=== PATIENT | female | born 1945 | race Caucasian/White ===

== ENCOUNTER → 2021-03-09 14:50 | Outpatient (CLI) | payer OTHER, SELFPAY | PROVIDERS: PCP Family Medicine; Referring Provider Family Medicine; Visit Provider Family Medicine | DX: Z20.9 Contact with and (suspected) exposure to unspecified communicable disease (principal) | CPT/HCPCS: 36415; 86769 ==

== ENCOUNTER → 2021-05-10 08:52 | Outpatient (CLI) | payer OTHER, SELFPAY ==
--- NOTE | 2021-05-10 | DI.MG.S_ITS ---
UNILATERAL RIGHT DIGITAL DIAGNOSTIC MAMMOGRAM 3D/2D: 05/10/2021 CLINICAL: Short term follow up. Comparison is made to exams dated: 10/26/2020 mammogram, 10/20/2020 mammogram, and 09/17/2019 mammogram - outside location. The tissue of right breast is heterogeneously dense. This may lower the sensitivity of mammography. There are faint, diffuse fine punctate calcifications in the right breast at 8 o'clock posterior depth. These are less prominent. The focal cluster previously described is not seen. No other significant masses or calcifications are seen in the breast. IMPRESSION: BENIGN Calcifications in the right breast appear benign. There is no mammographic evidence of malignancy. Return to annual mammogram screening schedule is recommended. Findings and recommendations were conveyed to the patient at time of exam. This exam was interpreted at Station ID: [id number]. NOTE: For mammograms, a report in lay terms will be sent to the patient. Approximately 15% of breast malignancies will not be visualized mammographically. In the management of a palpable breast mass, a negative mammogram must not discourage biopsy of a clinically suspicious lesion. Electronically Signed By: Lakisha garcia/:05/10/2021 09:48:58 letter sent: Normal Exam ACR BI-RADS Category 2: Benign Finding(s) 3342F
== END ==
PROVIDERS: PCP Family Medicine; Referring Provider Family Medicine; Visit Provider Family Medicine
DX: R92.8 Other abnormal and inconclusive findings on diagnostic imaging of breast (principal); R92.1 Mammographic calcification found on diagnostic imaging of breast
CPT/HCPCS: 77065; G0279

== ENCOUNTER → 2021-07-14 15:39 | Outpatient (CLI) | payer OTHER, SELFPAY ==
[2021-07-14 17:42] LABS: Add Manual Diff / Slide Review NO; Basophils Absolute Auto 0 /uL (0-100); Basophils Percent Auto 0.3 % (0-2); Eosinophils Absolute Auto 100 /uL (0-450); Eosinophils Percent Auto 0.9 % (2-4); Hematocrit 39.6 % (36-46); Hemoglobin 13.2 g/dL (12.0-16.0); Lymphocytes Absolute Auto 2200 /uL (1100-4500); Lymphocytes Percent Auto 26.5 % (25-40); Mean Corpuscular HGB Conc 33.3 % (30-36); Mean Corpuscular Hemoglobin 29.9 PG (26-34); Mean Corpuscular Volume 89.8 fL (80-100); Monocytes Absolute Auto 700 /uL (0-900); Monocytes Percent Auto 8.9 % (3-14); Neutrophils Absolute Auto 5200 /uL (1500-7000); Neutrophils Percent Auto 63.4 % (50-75); Platelet Count 305 X10^3/uL (150-400); Red Blood Cell Count 4.41 X10^6/uL (4.0-5.2); Red Cell Distribution Width 13.2 % (11.6-14.8); White Blood Cell Count 8.1 X10^3/uL (4.5-11.0)
[2021-07-14 17:55] LABS: Iron 83 ug/dL (37-170)
[2021-07-14 17:57] LABS: Alanine Aminotransferase 22 IU/L (<35); Albumin 4.2 g/dL (3.5-5.0); Albumin Globulin Ratio 1.5 (1.0-2.8); Alkaline Phosphatase 58 U/L (38-126); Aspartate Aminotransferase 31 IU/L (14-36); BUN Creatinine Ratio 20.7 (6-22); Bilirubin Total 0.7 mg/dL (0.2-1.3); Blood Urea Nitrogen 18 mg/dL (7-17); Calcium 9.4 mg/dL (8.4-10.2); Carbon Dioxide 30 mmol/L (22-32); Chloride 103 mmol/L (98-107); Estimated Glomerular Filt Rate > 60.0 mL/min (>60); Globulin 2.8 g/dL (1.7-4.1); Glucose 101 mg/dL (80-110); HEMOLYSIS < 15 (0-50); Potassium 4.4 mmol/L (3.4-5.1); Sodium 139 mmol/L (137-145)
== END ==
PROVIDERS: PCP Family Medicine; Referring Provider Family Medicine; Visit Provider Family Medicine
DX: K25.4 Chronic or unspecified gastric ulcer with hemorrhage (principal)
CPT/HCPCS: 36415; 80053; 83540; 85025

== ENCOUNTER → 2022-10-16 15:53 | Outpatient (CLI) | payer OTHER, SELFPAY ==
[2022-10-16 17:10] LABS: Add Manual Diff / Slide Review NO; Basophils Absolute Auto 0 /uL (0-100); Basophils Percent Auto 0.4 % (0-2); Eosinophils Absolute Auto 100 /uL (0-450); Eosinophils Percent Auto 1.5 % (2-4); Hematocrit 30.4 % (36-46); Hemoglobin 10.5 g/dL (12.0-16.0); Lymphocytes Absolute Auto 1700 /uL (1100-4500); Lymphocytes Percent Auto 28.1 % (25-40); Mean Corpuscular HGB Conc 34.6 % (30-36); Mean Corpuscular Volume 86.6 fL (80-100); Monocytes Absolute Auto 500 /uL (0-900); Neutrophils Absolute Auto 3700 /uL (1500-7000); Platelet Count 470 X10^3/uL (150-400); Red Blood Cell Count 3.51 X10^6/uL (4.0-5.2); Red Cell Distribution Width 13.8 % (11.6-14.8)
[2022-10-16 17:21] LABS: Appearance Urine UA CLEAR; Bilirubin Urine UA NEGATIVE (NEGATIVE); Color Urine UA YELLOW; Glucose Urine UA NEGATIVE (Negative); Ketones Urine UA NEGATIVE (NEGATIVE); Leukocyte Esterase Urine UA 2+ (NEGATIVE); Nitrite Urine UA NEGATIVE (Negative); Occult Blood Urine UA NEGATIVE (Negative); Protein Urine UA TRACE (Negative); Urobilinogen Urine UA 0.2 E.U./dL (0.2)
[2022-10-16 17:22] LABS: RBC Urine None Seen (0-5/HPF)
[2022-10-16 17:23] LABS: Alanine Aminotransferase 18 IU/L (<35); Albumin 3.9 g/dL (3.5-5.0); Alkaline Phosphatase 49 U/L (38-126); Amorphous Sediment Urine 1+; Aspartate Aminotransferase 24 IU/L (14-36); BUN Creatinine Ratio 25.6 (6-22); Bacteria Urine Few (2-10); Bilirubin Total 0.2 mg/dL (0.2-1.3); Blood Urea Nitrogen 21 mg/dL (7-17); Calcium 9.2 mg/dL (8.4-10.2); Carbon Dioxide 32 mmol/L (22-32); Chloride 100 mmol/L (98-107); Culture Indicated Urine Specimen Cultured; Estimated Glomerular Filt Rate > 60 mL/min (>60); Globulin 2.8 g/dL (1.7-4.1); Glucose 97 mg/dL (80-110); HEMOLYSIS < 15 (0-50); Potassium 4.2 mmol/L (3.4-5.1); Sodium 139 mmol/L (137-145); Squamous Epithelial Cell Urine 5-10 /HPF (0-5/HPF); Total Protein 6.7 g/dL (6.3-8.2); WBC Urine 5-10/HPF (0-5/HPF)
[2022-10-16 17:24] LABS: Albumin Globulin Ratio 1.4 (1.0-2.8)
[2022-10-16 17:58] LABS: TSH w/ Reflex to FT4 1.87 uIU/mL (0.47-4.68)
[2022-10-16 18:29] LABS: Folate 7.6 ng/mL (2.76-20.0); Vitamin B12 545 pg/mL (239-931)
== END ==
PROVIDERS: PCP Family Medicine; Referring Provider Nurse Practitioner; Visit Provider Nurse Practitioner
DX: R41.89 Other symptoms and signs involving cognitive functions and awareness (principal)
CPT/HCPCS: 36415; 80053; 81001; 82607; 82746; 84443; 85025; 87086

== ENCOUNTER → 2022-10-24 13:51 | Outpatient (CLI) | payer OTHER, SELFPAY ==
[2022-10-24 14:48] LABS: Hemoglobin 10.4 g/dL (12.0-16.0); Mean Corpuscular HGB Conc 32.6 % (30-36); Mean Corpuscular Hemoglobin 28.6 PG (26-34); Mean Corpuscular Volume 87.6 fL (80-100); Platelet Count 375 X10^3/uL (150-400); Red Blood Cell Count 3.65 X10^6/uL (4.0-5.2); Red Cell Distribution Width 14.1 % (11.6-14.8); White Blood Cell Count 5.1 X10^3/uL (4.5-11.0)
[2022-10-24 15:09] LABS: Alanine Aminotransferase 23 IU/L (<35); Albumin 4.1 g/dL (3.5-5.0); Albumin Globulin Ratio 1.4 (1.0-2.8); Alkaline Phosphatase 53 U/L (38-126); Aspartate Aminotransferase 27 IU/L (14-36); BUN Creatinine Ratio 24.7 (6-22); Bilirubin Total 0.5 mg/dL (0.2-1.3); Blood Urea Nitrogen 20 mg/dL (7-17); Calcium 8.9 mg/dL (8.4-10.2); Carbon Dioxide 30 mmol/L (22-32); Chloride 101 mmol/L (98-107); Estimated Glomerular Filt Rate > 60 mL/min (>60); Glucose 94 mg/dL (80-110); HEMOLYSIS < 15 (0-50); Potassium 4.1 mmol/L (3.4-5.1); Sodium 137 mmol/L (137-145); Total Protein 7.1 g/dL (6.3-8.2)
[2022-10-24 15:41] LABS: TSH w/ Reflex to FT4 1.31 uIU/mL (0.47-4.68)
[2022-10-24 16:15] LABS: Vitamin B12 568 pg/mL (239-931)
== END ==
PROVIDERS: PCP Family Medicine; Referring Provider Nurse Practitioner; Visit Provider Nurse Practitioner
DX: R41.89 Other symptoms and signs involving cognitive functions and awareness (principal)
CPT/HCPCS: 36415; 80053; 82607; 82746; 84443; 85027

== ENCOUNTER 2023-08-05 18:12 | Emergency (ER) | payer OTHER, SELFPAY ==
[2023-08-05] VITALS (12 sets, daily range): BP systolic 106–131; BP diastolic 53–60; PULSE 65–107; RESP 18–22; TEMP 37.4–37.9; O2SAT 94–100; BMI 17.3
--- NOTE | 2023-08-05 18:28 | DI.RAD.S_ITS ---
PROCEDURE: XR CHEST 1V INDICATIONS: suspected sepsis TECHNIQUE: One view of the chest was acquired. COMPARISON: None. FINDINGS: Surgical changes and devices: None. Lungs and pleura: Lungs are clear. No pleural effusions or pneumothorax. Mediastinum: Mediastinal contours appear normal. Heart size is normal. Bones and chest wall: No suspicious bony lesions. Overlying soft tissues appear unremarkable. IMPRESSION: No acute process. Dictated by: Doug Holbrook M.D. on 08/05/2023 at 19:28 Approved by: Doug Holbrook M.D. on 08/05/2023 at 19:28
--- NOTE | 2023-08-05 18:38 | ED_ITS ---
HPI - Neuro Symptoms/Deficit General Chief Complaint: Neuro Symptoms/Deficit Stated Complaint: sharp pain behind ears/confusion Time Seen by Provider: 08/05/23 18:37 Source: patient Mode of arrival: Ambulatory History of Present Illness HPI Narrative: Patient is a 78-year-old female history of cognitive impairment followed by Neurology and acid reflux presenting today with worsening confusion and fever. Apparently she has been complaining of head pain and sleeping most of the day. She is not able to provide any reliable history but able to follow commands. reports that they just traveled from [place]. He is not having any significant shortness of breath or cough. She has no neck pain. He reports that she was in her normal state of health yesterday. No nausea or vomiting. On Anticoagulants: No Related Data Home Medications Medication Instructions Recorded Confirmed [VAGIFIN] ##0 08/03/12 Allergies Allergy/AdvReac Type Severity Reaction Status Date / Time iodine [IODINE] Allergy Unknown Verified 08/05/23 18:16 Penicillins [PENICILLINS] Allergy Unknown Verified 08/05/23 18:16 Review of Systems Review of Systems ROS Unobtainable: All systems reviewed & are unremarkable except as noted in HPI and below Hematologic/Lymphatic On Anticoagulants: No Patient History Social History Smoking Status: Former smoker Smoking Status: Former smoker Substance Use Type: does not use Exam Initial Vital Signs Initial Vital Signs: Vital Signs Temperature 100.3 F H 08/05/23 18:16 Pulse Rate 107 H 08/05/23 18:16 Respiratory Rate 20 08/05/23 18:16 Blood Pressure 131/60 08/05/23 18:16 Pulse Oximetry 98 08/05/23 18:16 Oxygen Delivery Method Room Air 08/05/23 18:16 GENERAL: Alert thin 78-year-old female is well HEENT: Head atraumatic,EOMI, pupils reactive, face symmetric, moist mucous membranes NECK: Supple no vertebral tenderness no meningeal signs CARDIOVASCULAR: Regular rate and rhythm without murmurs, rubs or gallops. RESPIRATORY: Breath sounds equal bilaterally, no wheezes rales or rhonchi. ABDOMEN: Soft, nontender. Normoactive bowel sounds all 4 quadrants. No guarding or rebound. EXTREMITIES: Normal range of motion, no clubbing or edema. Neurovascularly intact NEUROLOGICAL: Alert oriented to person. Cranial nerves II through XII grossly intact. Good gohzay-ke-ilup, good bpfu-xh-folx, strength equal bilaterally, no dysarthria or aphasia, sensation in tact to soft touch bilaterally, no visual c hanges, no facial droop SKIN: Warm, dry, no laceration, no petechiae, no rashes or lesions. Course Orders Ordered: ED Orders 08/05/23 18:28 XR chest 1V Stat EKG-12 Lead Stat RT Consult Eval and Treat NOW 08/05/23 18:30 Complete Blood Count AUTO DIFF Stat Comprehensive Metabolic Panel Stat Lactate (Lactic Acid) Stat Lipase Stat PTT Partial Thromboplastin Christiano Stat Procalcitonin Stat Prothrombin Time INR Stat Respiratory Panel (Film Array) Stat 08/05/23 18:55 Blood Culture Stat Discontinued Medications Acetaminophen (Acetaminophen 325 Mg Tablet) 650 mg PO NOW ONE Stop: 08/05/23 20:03 Last Admin: 08/05/23 20:16 Dose: 650 mg Documented By: PADMA Sodium Chloride (Normal Saline 0.9%) 1,000 mls @ 1,000 mls/hr IV BOLUS ONE Stop: 08/05/23 19:27 Last Infusion: 08/05/23 19:55 Dose: 0 mls/hr Documented By: Admin: 08/05/23 18:55 Dose: 1,000 mls/hr Documented By: OXANA Ketorolac Tromethamine (Ketorolac 30 Mg/Ml Vial) 15 mg IV NOW ONE Stop: 08/05/23 18:39 Last Admin: 08/05/23 18:54 Dose: 15 mg Documented By: OXANA Ondansetron HCl (Ondansetron 4 Mg/2 Ml Inj) 4 mg IV NOW PRN PRN Reason: Nausea And Vomiting Ondansetron HCl (Ondansetron 4 Mg Odt) 4 mg SL NOW PRN PRN Reason: Nausea And Vomiting Vital Signs Vital signs: Vital Signs - 8 hr 08/05/23 18:16 08/05/23 18:54 08/05/23 18:34 Temperature 100.3 F H 100 F H Pulse Rate 107 H 90 Respiratory Rate 20 Blood Pressure 131/60 Pulse Oximetry 98 98 Oxygen Delivery Method Room Air 08/05/23 18:45 08/05/23 19:00 08/05/23 19:15 Temperature Pulse Rate 87 87 83 Respiratory Rate 18 20 Blood Pressure Pulse Oximetry 100 99 98 Oxygen Delivery Method 08/05/23 19:24 08/05/23 19:24 08/05/23 19:30 Temperature 99.3 F Pulse Rate 82 Respiratory Rate 21 Blood Pressure 120/59 L 117/59 L Pulse Oximetry 98 Oxygen Delivery Method 08/05/23 19:30 08/05/23 19:45 08/05/23 20:00 Temperature Pulse Rate 83 65 Respiratory Rate 20 Blood Pressure 106/53 L Pulse Oximetry 94 97 Oxygen Delivery Method 08/05/23 20:00 08/05/23 20:15 08/05/23 20:30 Temperature Pulse Rate 79 79 79 Respiratory Rate 22 19 20 Blood Pressure Pulse Oximetry 95 Oxygen Delivery Method MDM - Neuro Symptoms/Deficit Lab Data 08/05/23 18:30 08/05/23 18:30 Labs: Lab Results 08/05/23 08/05/23 08/05/23 Range/Units 18:30 18:30 18:30 WBC 6.9 (4.5-11.0) X10^3/uL RBC 4.63 (4.0-5.2) X10^6/uL Hgb 12.2 (12.0-16.0) g/dL Hct 36.8 (36-46) % MCV 79.3 L (80-100) fL MCH 26.4 (26-34) PG MCHC 33.3 (30-36) % RDW 15.9 H (11.6-14.8) % Plt Count 338 (150-400) X10^3/uL Neut % (Auto) 78.7 H (50-75) % Lymph % (Auto) 11.7 L (25-40) % [place] % (Auto) 8.8 (3-14) % Eos % (Auto) 0.1 L (2-4) % Baso % (Auto) 0.7 (0-2) % Neut # (Auto) 5400 (1785-1818) /uL Lymph # (Auto) 800 L (1920-5567) /uL [place] # (Auto) 600 (0-900) /uL Eos # (Auto) 0 (0-450) /uL Baso # (Auto) 0 (0-100) /uL PT 12.0 (10.1-12.7) SECONDS INR 1.0 (0.9-1.3) APTT 29 (26-36) SECONDS Sodium 135 L (137-145) mmol/L Potassium 4.0 (3.4-5.1) mmol/L Chloride 100 (98-107) mmol/L Carbon Dioxide 27 (22-32) mmol/L BUN 20 H (7-17) mg/dL Creatinine 0.97 (0.52-1.04) mg/dL Estimated GFR > 60 (>60) mL/min BUN/Creatinine Ratio 20.6 (6-22) Glucose 106 (80-110) mg/dL Lactate (0.7-2.1) mmol/L Calcium 9.9 (8.4-10.2) mg/dL Total Bilirubin 0.5 (0.2-1.3) mg/dL AST 31 (14-36) IU/L ALT 30 (<35) IU/L Alkaline Phosphatase 59 (38-126) U/L Total Protein 7.9 (6.3-8.2) g/dL Albumin 4.6 (3.5-5.0) g/dL Globulin 3.3 (1.7-4.1) g/dL Albumin/Globulin Ratio 1.4 (1.0-2.8) Lipase 466 H (23-300) U/L Procalcitonin 0.05 (<0.5) ng/mL Chlamy pneumoniae PCR (Not Detect) Adenovirus (PCR) (Not Detect) B. pertussis DNA (PCR) (Not Detecte) B.parapertussis DNA PCR (Not Detecte) Coronavirus OC43 (PCR) (Not Detect) Coronavirus HKU1 (PCR) (Not Detect) Coronavirus 229E (PCR) (Not Detect) SARS-CoV-2 (PCR) (Not Detecte) Coronavirus NL63 (PCR) (Not Detect) Human Metapneumovir PCR (Not Detect) Influenza Type A (PCR) (Not Detect) Influenza Type B (PCR) (Not Detect) M. pneumoniae (PCR) (Not Detect) Parainfluenza 1 (PCR) (Not Detect) Parainfluenza 2 (PCR) (Not Detect) Parainfluenza 3 (PCR) (Not Detect) Parainfluenza 4 (PCR) (Not Detect) RSV (PCR) (Not Detect) Entero/Rhino (PCR) (Not Detect) 08/05/23 08/05/23 Range/Units 18:30 18:30 WBC (4.5-11.0) X10^3/uL RBC (4.0-5.2) X10^6/uL Hgb (12.0-16.0) g/dL Hct (36-46) % MCV (80-100) fL MCH (26-34) PG MCHC (30-36) % RDW (11.6-14.8) % Plt Count (150-400) X10^3/uL Neut % (Auto) (50-75) % Lymph % (Auto) (25-40) % [place] % (Auto) (3-14) % Eos % (Auto) (2-4) % Baso % (Auto) (0-2) % Neut # (Auto) (3546-8977) /uL Lymph # (Auto) (3848-8812) /uL [place] # (Auto) (0-900) /uL Eos # (Auto) (0-450) /uL Baso # (Auto) (0-100) /uL PT (10.1-12.7) SECONDS INR (0.9-1.3) APTT (26-36) SECONDS Sodium (137-145) mmol/L Potassium (3.4-5.1) mmol/L Chloride (98-107) mmol/L Carbon Dioxide (22-32) mmol/L BUN (7-17) mg/dL Creatinine (0.52-1.04) mg/dL Estimated GFR (>60) mL/min BUN/Creatinine Ratio (6-22) Glucose (80-110) mg/dL Lactate 0.8 (0.7-2.1) mmol/L Calcium (8.4-10.2) mg/dL Total Bilirubin (0.2-1.3) mg/dL AST (14-36) IU/L ALT (<35) IU/L Alkaline Phosphatase (38-126) U/L Total Protein (6.3-8.2) g/dL Albumin (3.5-5.0) g/dL Globulin (1.7-4.1) g/dL Albumin/Globulin Ratio (1.0-2.8) Lipase (23-300) U/L Procalcitonin (<0.5) ng/mL Chlamy pneumoniae PCR Not detected (Not Detect) Adenovirus (PCR) Not detected (Not Detect) B. pertussis DNA (PCR) Not detected (Not Detecte) B.parapertussis DNA PCR Not detected (Not Detecte) Coronavirus OC43 (PCR) Not detected (Not Detect) Coronavirus HKU1 (PCR) Not detected (Not Detect) Coronavirus 229E (PCR) Not detected (Not Detect) SARS-CoV-2 (PCR) Detected H (Not Detecte) Coronavirus NL63 (PCR) Not detected (Not Detect) Human Metapneumovir PCR Not detected (Not Detect) Influenza Type A (PCR) Not detected (Not Detect) Influenza Type B (PCR) Not detected (Not Detect) M. pneumoniae (PCR) Not detected (Not Detect) Parainfluenza 1 (PCR) Not detected (Not Detect) Parainfluenza 2 (PCR) Not detected (Not Detect) Parainfluenza 3 (PCR) Not detected (Not Detect) Parainfluenza 4 (PCR) Not detected (Not Detect) RSV (PCR) Not detected (Not Detect) Entero/Rhino (PCR) Not detected (Not Detect) Urine Dip Bedside Urine Glucose Negative Bedside Urine Bilirubin - Negative Bedside Urine Ketone - Negative Urine Specific York 1.020 Bedside Urine Occult Blood - Negative Bedside Urine pH 6.0 Bedside Urine Protein - Negative Bedside Urine Urobilinogen - Negative Bedside Urine Nitrite - Negative Bedside Urine Leukocytes - Negative Esterase Imaging Data Chest x-ray: Radiologist's Impression: PROCEDURE:? XR CHEST 1V ? INDICATIONS:? suspected sepsis ? TECHNIQUE:? One view of the chest was acquired.? ? COMPARISON:? None. ? FINDINGS:? ? Surgical changes and devices:? None.? ? Lungs and pleura:? Lungs are clear.? No pleural effusions or pneumothorax.? ? Mediastinum:? Mediastinal contours appear normal.? Heart size is normal.? ? Bones and chest wall:? No suspicious bony lesions.? Overlying soft tissues appear unremarkable.? ? ? IMPRESSION:? No acute process. ? ? Dictated by: Doug Holbrook M.D. on 08/05/2023 at 19:28 ? ? ECG Data Interpretation: Normal sinus rhythm rate 85 GA interval 138 QRS [address] changes mild artifact no ischemia MDM Narrative Medical decision making narrative: Patient is a 78-year-old female with mild cognitive impairment presenting today with increased confusion and fever. She overall appears well she is no meningeal signs. She is positive for COVID without evidence of sepsis or hypoxia. Upon re-evaluation her mental status has cleared quite a bit she is able to give proper sent as. It is time she does not meet admission criteria. Blood work and chest x-ray have been viewed no clinical significance Discharge Plan Departure Patient Disposition: Home Clinical Impression: COVID-19 Instructions: COVID-19 Activity Restrictions/Additional Instructions: *You have been diagnosed with COVID-19 *What to do: At this time increase fluids as tolerated may eat as tolerated. Expect to feel poorly for the next couple of days and up to 2 weeks. Please do random checks of oxygen level to monitor. *Continue to take medications as directed Motrin 600 mg every 6 hours if needed for pain or fever Tylenol 650 mg every 4-6 hours if needed for pain or fever *Follow up with your primary care provider in 2-3 days or call [phone] *Return to ER if you should have increasing confusion not tolerating fluids oxygen less than or equal to 90% for at least 2 hours or any new, worsening or concerning symptoms Prescriptions: No Action [VAGIFIN] Qty: 0 Referrals: Brissa Purcell MD [Primary Care Provider] - Stand Alone Forms: Patient Portal/API
[2023-08-05 18:48] LABS: Add Manual Diff / Slide Review NO; Basophils Absolute Auto 0 /uL (0-100); Basophils Percent Auto 0.7 % (0-2); Eosinophils Absolute Auto 0 /uL (0-450); Eosinophils Percent Auto 0.1 % (2-4); Hematocrit 36.8 % (36-46); Hemoglobin 12.2 g/dL (12.0-16.0); Lymphocytes Absolute Auto 800 /uL (1100-4500); Lymphocytes Percent Auto 11.7 % (25-40); Mean Corpuscular HGB Conc 33.3 % (30-36); Mean Corpuscular Hemoglobin 26.4 PG (26-34); Mean Corpuscular Volume 79.3 fL (80-100); Monocytes Absolute Auto 600 /uL (0-900); Monocytes Percent Auto 8.8 % (3-14); Neutrophils Absolute Auto 5400 /uL (1500-7000); Neutrophils Percent Auto 78.7 % (50-75); Platelet Count 338 X10^3/uL (150-400); Red Blood Cell Count 4.63 X10^6/uL (4.0-5.2); Red Cell Distribution Width 15.9 % (11.6-14.8); White Blood Cell Count 6.9 X10^3/uL (4.5-11.0)
[2023-08-05] MEDS: KETOROLAC 30 MG/ML VIAL 15 MG IV (18:54)
[2023-08-05] MEDS: SODIUM CHLORIDE 0.9% 1,000 ML 1000 ML IV (18:55)
[2023-08-05 18:59] LABS: Lactate (Lactic Acid) 0.8 mmol/L (0.7-2.1)
[2023-08-05 19:00] LABS: Alanine Aminotransferase 30 IU/L (<35); Albumin 4.6 g/dL (3.5-5.0); Albumin Globulin Ratio 1.4 (1.0-2.8); Alkaline Phosphatase 59 U/L (38-126); Aspartate Aminotransferase 31 IU/L (14-36); BUN Creatinine Ratio 20.6 (6-22); Bilirubin Total 0.5 mg/dL (0.2-1.3); Blood Urea Nitrogen 20 mg/dL (7-17); Calcium 9.9 mg/dL (8.4-10.2); Carbon Dioxide 27 mmol/L (22-32); Chloride 100 mmol/L (98-107); Estimated Glomerular Filt Rate > 60 mL/min (>60); Globulin 3.3 g/dL (1.7-4.1); Glucose 106 mg/dL (80-110); HEMOLYSIS < 15 (0-50); Lipase 466 U/L (23-300); Sodium 135 mmol/L (137-145); Total Protein 7.9 g/dL (6.3-8.2)
[2023-08-05 19:06] LABS: PTT Partial Thromboplastin Tim 29 SECONDS (26-36)
[2023-08-05 19:17] LABS: Procalcitonin 0.05 ng/mL (<0.5)
[2023-08-05 19:58] LABS: Adenovirus Not Detected (Not Detect); B. parapertussis Not Detected (Not Detecte); Bordetella pertussis Not Detected (Not Detecte); Chlamydophila pneumoniae Not Detected (Not Detect); Coronavirus 229E Not Detected (Not Detect); Coronavirus HKU1 Not Detected (Not Detect); Coronavirus NL 63 Not Detected (Not Detect); Coronavirus OC43 Not Detected (Not Detect); Human Metapneumovirus Not Detected (Not Detect); Human Rhinovirus/Enterovirus Not Detected (Not Detect); Influenza A Not Detected (Not Detect); Influenza B Not Detected (Not Detect); Mycoplasma pneumoniae Not Detected (Not Detect); Parainfluenza Virus 1 Not Detected (Not Detect); Parainfluenza Virus 2 Not Detected (Not Detect); Parainfluenza Virus 3 Not Detected (Not Detect); Parainfluenza Virus 4 Not Detected (Not Detect); Respiratory Syncytial Virus Not Detected (Not Detect)
[2023-08-05 19:59] LABS: SARS- CoV-2 Detected (Not Detecte)
[2023-08-05] MEDS: ACETAMINOPHEN 325 MG TABLET 650 MG PO (20:16)
== END 2023-08-05 21:00 | disposition home or self-care (01) ==
PROVIDERS: Emergency Provider Emergency Medicine; PCP Family Medicine
DX: U07.1 COVID-19 (principal)
CPT/HCPCS: 36415; 71045; 80053; 81003; 83605; 83690; 84145; 85025; 85610; 85730; 87040; 87633; 93005; 96361; 96374; 99284; J1885

== ENCOUNTER 2024-07-22 10:30 | Outpatient (RCR) | payer OTHER, SELFPAY ==
--- NOTE | 2024-06-17 09:54 | ST.OPIE ---
Visit Care Team Role Provider Type BISI Zelaya Family Provider Non-Staff Referring Provider Specialty: Nursing Address: [facility], [address], [place], [address] Email: Brissa Purcell MD Attending Provider Non-Staff Primary Care Provider Specialty: Family Practice Address: [address] [place] [address] [address], [place], [address] Email: Speech-Language Pathology Initial Evaluation [employer] Adult Cognitive Linguistic Eval Start: 06/16/24 12:25 Freq: Status: Active Protocol: Document 06/16/24 12:25 JODI (Rec: 06/16/24 12:37 JODI [id number]) Adult Cognitive Linguistic Evaluation Session Time Visit Start Time 12:00 Visit Stop Time 12:35 Total Visit Minutes 35 Visit Information Visit Number Initial Eval Plan of Care Dates 06/16/24-08/16/24 Insurance Information [employer] Medicare Advantage Referral Referring Provider Dr. Annalise Pastrana Reason for Referral Mild cognitive impairment, dementia Setting Assessment Location Outpatient Care Visit Type Note Type Initial evaluation Next Note Type Next Note Type Treatment Note Patient Information Identification Type Name Patient History Pt is a 78 year old female seen this date for cognitive- communication evaluation, however reports voice/swallow issues as well. Today's evaluation focused on cog-com with ST recommending referral to ENT and MBS prior to addressing voice and swallow issues. Pt is accompanied by her who assisted with most questions d/t Pt with cognitive deficits. Pt and her live in [place] half of the year, however are back in the area until mid August. Pt reports noticable cognitive changes with his about 2 years ago, which has progressively gotten worse , with associated word finding difficulties. He reports it was just confirmed through a spinal tap that she has Alzheimer's dementia. Informally, Pt presented with short term memory deficiits, and getting off track easily. 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 Her has good insight into care needs. He denies that she has reflux, however takes omeprazole for bleeding ulcers . Hearing Hearing Level Normal Previous Therapy Previous Speech-Language Therapy Yes History of Therapy Pt reports she had speech therapy last summer for about 3 months at [facility] outpatient rehab where she worked on cognitive/ communication and voice. Assessment Oral Motor Examination Completed No Informal Assessment Receptive Language Normal No Receptive Language Impairment(s) Comprehension of complex yes/ no questions,Following 2-step commands,Following 3-step commands,Comprehension of conversation Expressive Language Normal No Expressive Language Impairment(s) Confrontation naming Pragmatic Language Normal Yes Speech Normal Yes Cognition Normal No Cognitive Impairment(s) Orientation,Attention,Short- term memory,Long-term memory, Executive functioning Formal Assessment Standardized Test/Screener Type Cognitive Linguistic Quick Test (CLQT) Administration Incomplete Results ST administered CLQT, however incomplete d/t time. ST plan to finish test during next visit. Pt completed the following tasks: Personal facts: 02/09 Symbol Cancellation: Confrontation namin/10 Clock drawin/13 Pt demonstrates deficits in short term memory recall, problem solving, thought organization and executive functions. She demonstrated strengths with confrontation naming, however did not benefit from phonemic cues. Informally, Pt demonstrated difficulties answeringn biographical questions, medical hx questions and appeared to get distracted. Findings/Results Language Function Moderately impaired Cognitive Function Moderately-severely impaired Findings Pt presents with mod-severe cog communication deficiti ( R41.841) characterized by deficits stated above. ST is warranted in order to educate Pt and Pt on internal and external memory strategies . ST also plans to address voice/swallow issue after Pt has seen an ENT and had gotten a MBS done. Cognitive Communication Deficits Self-awareness of Cognitive- Limited awareness (minimal Communication Deficits appreciation without specificity) Prognosis Prognosis Fair Based on Family support Plan of Care Speech-Language Treatment Yes Frequency 1x/week Duration 3 months Patient/Caregiver Education Described results of evaluation,Patient expressed understanding of evaluation, Patient expressed agreement with goals and treatment plans ,Patient requires further education/training,Family/ caregivers require further education/training Short Term Goals STG 1: Patient will demonstrate increase short term recall for functional/ daily life information with 90 % of opportunities given environmental modifications implemented and by using visual aids in order to increase independence and safety. STG 2: The patient will accurately answer biographical /functional yes/no questions using words/head nods/or pointing to written words with 75% accuracy. STG 3: Patient will follow 2- step commands related to functional living environment with 75% accuracy and mod cues in order to increase functional integration into environment. STG 4: Patient will name/ describe objects/pictures with 80% accuracy and mod cues for forced choice, phonemic/ semantic cueing, gestural/ contextual cues. Group Home Goals LTG 1: Patient will comprehend communication related to basic medical and social needs and utilize compensatory strategies to maintain safety and participate socially in functional living environment. LTG 2: Patient will develop functional, cognitive- linguistic-based skills and utilize compensatory strategies to communicate wants and needs effectively to different conversational partners, maintain safety and participate socially in functional living environment Discharge Recommendations Home
--- NOTE | 2024-06-17 09:54 | ST.OPPOC ---
Physical, Occupational & Speech Therapy At [facility] Visit Care Team Role Provider Type BISI Zelaya Family Provider Non-Staff Referring Provider Address: [facility], [address], [place], [address] Brissa Purcell MD Attending Provider Non-Staff Primary Care Provider Address: [address] [place] [address] [address], [place], [address] Speech Pathology Plan of Care Plan of Care Dates 06/16/24-08/16/[address] Annalise Pastrana Patient History Pt is a 78 year old female seen this date for cognitive-communication evaluation, however reports voice/swallow issues as well. Today's evaluation focused on cog-com with ST recommending referral to ENT and MBS prior to addressing voice and swallow issues. Pt is accompanied by her who assisted with most questions d/t Pt with cognitive deficits. Pt and her live in [place] half of the year, however are back in the area until mid August. Pt reports noticable cognitive changes with his about 2 years ago, which has progressively gotten worse, with associated word finding difficulties. He reports it was just confirmed through a spinal tap that she has Alzheimer's dementia. Informally, Pt presented with short term memory deficiits, and getting off track easily. 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 Her has good insight into care needs. He denies that she has reflux, however takes omeprazole for bleeding ulcers. Self-awareness of Cognitive- Limited awareness (minima Communication Deficits Short Term Goals STG 1: Patient will demonstrate increase short term recall for functional/daily life information with 90% of opportunities given environmental modifications implemented and by using visual aids in order to increase independence and safety. STG 2: The patient will accurately answer biographical/functional yes/no questions using words/head nods/or pointing to written words with 75% accuracy. STG 3: Patient will follow 2-step commands related to functional living environment with 75 % accuracy and mod cues in order to increase functional integration into environment. STG 4: Patient will name/describe objects/ pictures with 80% accuracy and mod cues for forced choice, phonemic/semantic cueing, gestural/contextual cues. Alf Goals LTG 1: Patient will comprehend communication related to basic medical and social needs and utilize compensatory strategies to maintain safety and participate socially in functional living environment. LTG 2: Patient will develop functional, dqdfhlxnt-ceankwccuz-qxvxi skills and utilize compensatory strategies to communicate wants and needs effectively to different conversational partners, maintain safety and participate socially in functional living environment Comment: Electronically Signed by: DEON Marrufo 06/17/24 0954 If you are in agreement with this Plan of Care, please return a signed and dated copy. I have reviewed this Plan of Care and certify that the skilled therapy services above are required to meet the patient?s needs. Physician Signature Date Printed Name and Credentials Clinical Instructor Signature Printed Name and Credentials
--- NOTE | 2024-06-24 17:08 | ST.OPTN ---
Visit Care Team Role Provider Type BISI Zelaya Family Provider Non-Staff Referring Provider Address: [facility], [address], [address], [place], [address] Brissa Purcell MD Attending Provider Non-Staff Primary Care Provider Address: [address] [place] [address] [address], [place], [address] SNAP SHEARER Treatment Note SNAP SHEARER Treatment Note Start: 06/24/24 16:25 Freq: Status: Active Protocol: Document 06/24/24 16:25 JODI (Rec: 06/24/24 16:26 MA [id number]) Speech Pathology Treatment Note Session Time Visit Start Time 16:00 Visit Stop Time 16:35 Total Visit Minutes 35 Visit Information Visit Number 2 Plan of Care Dates 06/16/24-08/16/24 Setting Treatment Setting Outpatient Care Next Note Type Next Note Type Treatment Note General Information Patient History Pt is a 78 year old female seen this date for cognitive- communication evaluation, however reports voice/swallow issues as well. Today's evaluation focused on cog-com with ST recommending referral to ENT and MBS prior to addressing voice and swallow issues. Pt is accompanied by her who assisted with most questions d/t Pt with cognitive deficits. Pt and her live in [place] half of the year, however are back in the area until mid August. Pt reports noticable cognitive changes with his about 2 years ago, which has progressively gotten worse , with associated word finding difficulties. He reports it was just confirmed through a spinal tap that she has Alzheimer's dementia. Informally, Pt presented with short term memory deficiits, and getting off track easily. 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 Her has good insight into care needs. He denies that she has reflux, however takes omeprazole for bleeding ulcers . Subjective Observations/Patient Presentation Pt arrived on time with her who accompanied her to therapy. Objective Short Term Goals STG 1: Patient will demonstrate increase short term recall for functional/ daily life information with 90 % of opportunities given environmental modifications implemented and by using visual aids in order to increase independence and safety. STG 2: The patient will accurately answer biographical /functional yes/no questions using words/head nods/or pointing to written words with 75% accuracy. STG 3: Patient will follow 2- step commands related to functional living environment with 75% accuracy and mod cues in order to increase functional integration into environment. STG 4: Patient will name/ describe objects/pictures with 80% accuracy and mod cues for forced choice, phonemic/ semantic cueing, gestural/ contextual cues. [employer] Technical Assistant Goals LTG 1: Patient will comprehend communication related to basic medical and social needs and utilize compensatory strategies to maintain safety and participate socially in functional living environment. LTG 2: Patient will develop functional, cognitive- linguistic-based skills and utilize compensatory strategies to communicate wants and needs effectively to different conversational partners, maintain safety and participate socially in functional living environment Treatment Activities Completion of CLQT Assessment Patient Response to Treatment Excellent Assessment of Improvement ST adminstered CLQT in order to complete the test d/t running out of time from initial evaluation. Pt scored the following on the CLQT: Attention mild- 111 memory severe- 66 executive functions mod- 10 language severe- 15 visuospatial skills mild- 47 clock drawing severe- 6 Pt scored a total score of 2 indicating a severity rating of moderate cognitive communication deficit. Pt demonstrated strengths with attention and visuospatial skills and most deficits in memory and language. Pt reports they have not heard back from the ENT or MBS . ST to f/u during next visit. Reviewed with Patient Goals
--- NOTE | 2024-07-13 09:41 | ST.OPTN ---
Visit Care Team Role Provider Type BISI Zelaya Family Provider Non-Staff Referring Provider Address: [facility], [address], [address], [place], [address] Brissa Purcell MD Attending Provider Non-Staff Primary Care Provider Address: [facility] [address], [place], [address] FERRYBOAT OPERATOR CABLE Treatment Note FERRYBOAT OPERATOR CABLE Treatment Note Start: 06/24/24 16:25 Freq: Status: Active Protocol: Document 07/13/24 09:35 MA (Rec: 07/13/24 09:41 MA [id number]) Speech Pathology Treatment Note Session Time Visit Start Time 09:00 Visit Stop Time 09:30 Total Visit Minutes 30 Visit Information Visit Number 3 Plan of Care Dates 06/16/24-08/16/24 Setting Treatment Setting Outpatient Care Next Note Type Next Note Type Treatment Note General Information Patient History Pt is a 78 year old female seen this date for cognitive- communication evaluation, however reports voice/swallow issues as well. Today's evaluation focused on cog-com with ST recommending referral to ENT and MBS prior to addressing voice and swallow issues. Pt is accompanied by her who assisted with most questions d/t Pt with cognitive deficits. Pt and her live in [place] half of the year, however are back in the area until mid August. Pt reports noticable cognitive changes with his about 2 years ago, which has progressively gotten worse , with associated word finding difficulties. He reports it was just confirmed through a spinal tap that she has Alzheimer's dementia. Informally, Pt presented with short term memory deficiits, and getting off track easily. 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 Her has good insight into care needs. He denies that she has reflux, however takes omeprazole for bleeding ulcers . Subjective Observations/Patient Presentation Pt arrived on time with her who accompanied her to therapy. Objective Short Term Goals STG 1: Patient will demonstrate increase short term recall for functional/ daily life information with 90 % of opportunities given environmental modifications implemented and by using visual aids in order to increase independence and safety. STG 2: The patient will accurately answer biographical /functional yes/no questions using words/head nods/or pointing to written words with 75% accuracy. STG 3: Patient will follow 2- step commands related to functional living environment with 75% accuracy and mod cues in order to increase functional integration into environment. STG 4: Patient will name/ describe objects/pictures with 80% accuracy and mod cues for forced choice, phonemic/ semantic cueing, gestural/ contextual cues. Cavalry Scout Goals LTG 1: Patient will comprehend communication related to basic medical and social needs and utilize compensatory strategies to maintain safety and participate socially in functional living environment. LTG 2: Patient will develop functional, cognitive- linguistic-based skills and utilize compensatory strategies to communicate wants and needs effectively to different conversational partners, maintain safety and participate socially in functional living environment Treatment Activities Memory compensatory strategies , goals for therapy Assessment Patient Response to Treatment Excellent Assessment of Improvement Pt reports they have not heard back about an ENT/ MBS referral. He states he has called her PCP with no success. ST to f/u with Pt PCP /referring provider. Pt reports her cognition is inconsistent with some days being better than others. He reports she spoke on the phone with a friend the other day and sounded really good in regards to her questions and information provided, however again cognition flucuates. Her states she doesn't always remember/recognize people or their names and when she is having trouble in conversation remembering something she will say Let's just drop that. ST recommended Pt start journaling daily to assist with memory recall. Pt reports she just got her a journal and she has lightly used it, however she primarily will write information down on post it notes. ST also recommended she use the record option on her phone to record people's conversations d/t her trying to write stuff down to help with recall. Pt recalled past information during structured conversational task with about 50% accuracy, and benefited from cues frmo her to assist with recall. However, she frequently would mentioned her voice/swallow issues. ST provided max cues on plan to address cognition at this time and then voice/swallow once the referrals are in. ST also recommended Pt create a memory book in therapy. Pt reports she made one with her speech therapist last summer and they will bring it in during the next session. ST provided questions to supplement the memory book and recommended she complete it for homework. Reviewed with Patient Goals
--- NOTE | 2024-07-22 11:19 | ST.OPDS ---
Visit Care Team Role Provider Type BISI Zelaya Family Provider Non-Staff Referring Provider Address: [facility], [address], [address], [place], [address] Brissa Purcell MD Attending Provider Non-Staff Primary Care Provider Address: [facility] [address], [place], [address] BREAD SLICER MACHINE Treatment Note BREAD SLICER MACHINE Treatment Note Start: 06/24/24 16:25 Freq: Status: Active Protocol: Document 07/22/24 11:11 JODI (Rec: 07/22/24 11:17 JODI [id number]) Speech Pathology Treatment Note Session Time Visit Start Time 10:30 Visit Stop Time 11:10 Total Visit Minutes 40 Visit Information Visit Number 4 Plan of Care Dates 06/16/24-08/16/24 Setting Treatment Setting Outpatient Care Next Note Type Next Note Type Treatment Note General Information Patient History Pt is a 78 year old female seen this date for cognitive- communication evaluation, however reports voice/swallow issues as well. Today's evaluation focused on cog-com with ST recommending referral to ENT and MBS prior to addressing voice and swallow issues. Pt is accompanied by her who assisted with most questions d/t Pt with cognitive deficits. Pt and her live in [place] half of the year, however are back in the area until mid August. Pt reports noticable cognitive changes with his about 2 years ago, which has progressively gotten worse , with associated word finding difficulties. He reports it was just confirmed through a spinal tap that she has Alzheimer's dementia. Informally, Pt presented with short term memory deficiits, and getting off track easily. 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 Her has good insight into care needs. He denies that she has reflux, however takes omeprazole for bleeding ulcers . Subjective Observations/Patient Presentation Pt arrived on time with her who accompanied her to therapy. Objective Short Term Goals STG 1: Patient will demonstrate increase short term recall for functional/ daily life information with 90 % of opportunities given environmental modifications implemented and by using visual aids in order to increase independence and safety. - NOT MET STG 2: The patient will accurately answer biographical /functional yes/no questions using words/head nods/or pointing to written words with 75% accuracy.- NOT MET STG 3: Patient will follow 2- step commands related to functional living environment with 75% accuracy and mod cues in order to increase functional integration into environment.- NOT MET STG 4: Patient will name/ describe objects/pictures with 80% accuracy and mod cues for forced choice, phonemic/ semantic cueing, gestural/ contextual cues.- NOT MET Plush Finisher Goals LTG 1: Patient will comprehend communication related to basic medical and social needs and utilize compensatory strategies to maintain safety and participate socially in functional living environment. - NOT MET LTG 2: Patient will develop functional, cognitive- linguistic-based skills and utilize compensatory strategies to communicate wants and needs effectively to different conversational partners, maintain safety and participate socially in functional living environment- NOT MET Treatment Activities Memory compensatory strategies , memory book questions Assessment Patient Response to Treatment Excellent Progress Towards Goals Appropriate for Discharge Assessment of Overall Progress Unchanged Assessment of Improvement Pt reports they heard back from the ENT, however would not be able to get in until September and they will be leaving to be at their home in [place] until the Spring starting August 12. Pt reports they lost the memory book question homework and also could not find the memory book previously created , which may be d/t it being in [place]. ST assessed memory recall utilizing memory book questions. Pt demonstrated difficulties answering long term care social worker and short term memory questions and benefited from providing cues. Pt appeared very vague when answering questions, however benefitted from cues related to past events. She was able to answer questions in regards to her birthday and place, however difficulties with timeline and specific questions related to college/ jobs. Pt reports they attempted to journal, however Pt had difficulties writing full sentences. He states he still will write notes on random pieces of paper. Pt reports they leave this coming Saturday for a trip to [place] and then will be leaving August 12 for [place]. ST unavailable at those times resulting in today being their last session. ST educated Pt and her on potential for teletherapy through a local BREAD SLICER MACHINE. Pt reported interest. ST recommends Pt discharged from this clinic at this time. ST provided additional memory book questions and encouraged Pt and her to utilize questions as conversation starters and to utilize memory book as well as other brain stimulating activities. ST educated Pt on reason for memory book. Reviewed with Patient Goals,Home Exercise Program Plan Frequency of Treatment No Further Therapy
== END 2024-07-28 12:48 | disposition home or self-care (01) ==
LOC: SP 10:30
PROVIDERS: Family Provider Nurse Practitioner; PCP Family Medicine; Referring Provider Nurse Practitioner; Visit Provider Family Medicine
DX: G31.84 Mild cognitive impairment of uncertain or unknown etiology (principal); F03.90 Unspecified dementia, unspecified severity, without behavioral disturbance, psychotic disturbance, mood disturbance, and anxiety
CPT/HCPCS: 92507; 92523